=== PATIENT | male | born 1955 | race Two or more races ===

== ENCOUNTER 2019-07-29 10:49 | Emergency (ER) | payer OTHER ==
[~2019-07-29] VITALS: Ht 177.8 cm; Wt 72.6 kg
[2019-07-29] MEDS ORDERED: CLONAZEPAM2 M1 (11:46)
[2019-07-29] MEDS ORDERED: ZETIA10 MG (11:46)
[2019-07-29] MEDS ORDERED: PRILOSEC OTC20 MG (11:47)
[2019-07-29] MEDS ORDERED: BREO ELLIPTA 21 EACH (11:47)
[2019-07-29] MEDS ORDERED: SINGULAIR 10MG10 MG (11:47)
[2019-07-29] MEDS ORDERED: TRADJENTA5 MG (11:47)
[2019-07-29] MEDS ORDERED: NORVASC5 MG (11:48)
[2019-07-29] MEDS ORDERED: VENTOLIN HFA18 GM (11:48)
[2019-07-29] MEDS ORDERED: IRBESARTAN-HCT1 EAC1 (11:48)
[2019-07-29] MEDS ORDERED: TOPROL XL100 MG (11:48)
[2019-07-29] MEDS ORDERED: SYNTHROID88 MCG (11:49)
== END 2019-07-29 17:27 | disposition home or self-care (01) ==
LOC: ER 10:49
DX: K60.1 Chronic anal fissure (principal)

== ENCOUNTER 2019-07-31 08:30 | Emergency (ER) | payer OTHER ==
[~2019-07-31] VITALS: Ht 177.8 cm; Wt 72.6 kg
[~2019-07-31 08:30] MED LIST: BREO ELLIPTA 21 EACH; CLONAZEPAM2 M1; IRBESARTAN-HCT1 EAC1; NORVASC5 MG; PRILOSEC OTC20 MG; SINGULAIR 10MG10 MG; SYNTHROID88 MCG; TOPROL XL100 MG; TRADJENTA5 MG; VENTOLIN HFA18 GM; ZETIA10 MG
== END 2019-07-31 19:55 | disposition home or self-care (01) ==
LOC: ER 08:30
DX: K59.09 Other constipation (principal)